=== PATIENT | male | born 1980 ===

== ENCOUNTER 2016-10-17 23:07 | Emergency (ER) | payer MEDICAID ==
[~2016-10-17] VITALS: Ht 170.2 cm; Wt 97.0 kg
[2016-10-17 23:18] VITALS: BP 122/90; PULSE 64; RESP 14; O2SAT 96
--- NOTE | 2016-10-18 00:27 | ED.REPORT ---
HPI-Neck Pain Free Text HPI Notes October 18, 2016 ED Provider: Dr. Barrett Marques D.O. A healthy 36 year old male presents to the ED reporting right-sided neck pain onset today, while loading a canoe into a trailer. He heard a "pop" at onset and his pain has progressively worsened since. It is now painful to swallow. The patient denies fever, cough, or other symptoms. Nursing Notes Stated Complaint: NECK/THROAT PAIN Chief Complaint: General Complaint Nursing Notes Reviewed: Yes Allergies: Uncoded Allergies: PENNICILLAN (Allergy, Intermediate, hive, 10/17/16) General Time Seen by Provider: 00:27 Chief Complaint Neck pain (Right-sided) Hx Obtained From: Patient Arrived By: Walk-in Sudden in Onset?: Yes Onset Occurred: 9 - 12 hours ago Symptom Duration: Since onset Progression Since Onset: Gradually worsening Location: : Lateral neck right Quality: Painful Severity: Current: Moderate Severity: Maximum: Moderate Pertinent Negative: Relieved by nothing Immunizations: Unknown Recent Healthcare: No recent doctor visit Past Medical History Past Medical History None reported Past Surgical History Multiple surgeries right shoulder Smoking History Unknown if Ever Smoker Social History Other Social History: Good social support Ambulatory Status Independent Review of Systems Review of Systems Note: + Painful swallowing Constitutional: Denies: Fever Respiratory: Denies: Non-productive cough, Shortness of breath GI: Denies: Diarrhea, Vomiting Musculoskeletal: Reports: Neck pain (Right-sided) Complete sys rev & neg: except as marked. Physical Exam Initial Vital Signs Vital Signs (First) Date Time Temp Pulse Resp B/P Pulse Ox O2 Delivery O2 Flow Rate FiO2 10/17/16 23:18 36.4 64 14 122/90 96 10/18/16 03:56 Room Air Initial VS: Reviewed Head / Eyes: Atraumatic, Normocephalic Respiratory: No respiratory distress Skin: Warm, Dry, No cyanosis Psychiatric: Mood/affect normal, Behavior normal, Normal thought content General/Constitutional: Awake, Alert, No acute distress Neck: Supple, Full range of motion Tender anterior neck Neurologic: Oriented X3, Speech NL, No motor deficits, No sensory deficits ENT: Airway patent, Mucous membranes moist, Pharynx NL Interpretation & Diagnostics CT NECK: CONCLUSION: Collapsed vocal cords, probably due to breath-holding. Possibly slight fluid or debris in the right aryepiglottic fold. No obvious acute abnormality. Report transmitted to ED by radiologist Leann Khalil M.D. at 10/18/2016 - 2:46: 13 AM PDT Lab Results Interpretation Result Diagram: 10/18/16 0108 10/18/16 0108 Test 10/18/16 01:08 White Blood Count 9.2th/mm3 (3.8-10.1) Red Blood Count 6.06mil/mm3 (4.40-5.80) Hemoglobin 16.8g/dL (13.8-17.2) Hematocrit 48.0% (41.0-50.0) Mean Corpuscular Volume 79.2fL (81-100) Mean Corpuscular Hemoglobin 27.7pg (27.0-35.0) Mean Corpuscular Hemoglobin Concent 35.0% (32.0-37.0) Red Cell Distribution Width 13.9% (12.3-15.4) Platelet Count 248bil/L (150-400) Neutrophils (%) (Auto) 63.0% (40-74) Lymphocytes (%) (Auto) 25.2% (14-46) Monocytes (%) (Auto) 7.4% (4-12) Eosinophils (%) (Auto) 3.7% (0-5) Basophils (%) (Auto) 0.5% (0-3) Sodium Level 140mEq/L (134-144) Potassium Level 4.1mEq/L (3.5-5.2) Chloride Level 99mEq/L (97-108) Carbon Dioxide Level 26mmol/L (18-29) Blood Urea Nitrogen 11mg/dL (6-20) Creatinine 0.91mg/dL (0.76-1.27) Estimat Glomerular Filtration Rate 99mL/min (>59) Glucose Level 101mg/dL (60-99) Calcium Level 10.3mg/dL (8.5-10.1) Total Bilirubin 0.7mg/dL (0.0-1.2) Aspartate Amino Transf (AST/SGOT) 26U/L (0-50) Alanine Aminotransferase (ALT/SGPT) 27U/L (0-44) Alkaline Phosphatase 65U/L (25-150) Total Protein 8.0g/dL (6.4-8.4) Albumin 5.0g/dL (3.4-5.0) Re-Eval/Medical Decision Med Decision/Clinical Course The [facility] read of the CT was reassuring. Moses was placed on pain medication and I followed up within the next day. He is feeling much better. Our radiologist do recommend that ENT get involved because before meals some swelling in the throat that is asymmetric. I called Moses at home today. He is feeling much better. I gave him Dr. Lj Hu's office number for referral. He is going to call tomorrow to set up a follow-up area and I did tell him that the radiologist think there is some fluid or soft tissue swelling needs to be looked at directly. Moses going to call tomorrow. Re-Evaluation/Progress : Time of Eval: 03:17 Patient Status: Condition improved Re-Evaluation/Progress Note: Discussed with patient lab and CT results, diagnosis, and plan for discharge. Follow-up and return to the ER instructions given. Patient agrees with plan for care and all questions were addressed. Severity: Non life-threatening Counseled Regarding: Diagnosis, Lab results, Need for follow-up, When/why to return to ED Discharge & Departure Primary Impression: Throat pain Additional Impression: Neck pain Disposition: Home Discharge Condition All VS Reviewed: Yes Condition: Improved Patient Instructions: Neck Pain (ED) Additional Instructions: Thank you for entrusting us with your care. Your CT was reassuring today. The cause of your symptoms is uncertain and needs close follow-up. 1 Vicodin every six hours as needed for pain. Do not drink alcohol, drive, or consume acetaminophen while taking Vicodin. Call your primary care provider tomorrow for a follow-up appointment. Return to the ER with any new or worsening symptoms. Dr. Lj Hu was given referral for follow-up. Referrals: Carli Rosa MD (PCP) Lj Hu MD ED Scribe Statement Portions of this note were transcribed by Shannon Stone. I, Dr. Marques, personally performed the history, physical exam, and medical decision-making; I reviewed and confirmed the accuracy of the information in the transcribed note. Signed by: Chandler Corona, 10/18/2016, 03:40 copies to: Carli Rosa MD; Lj Hu MD, Todd P DO October 18, 2016 00:27 SHANNON STONE October 18, 2016 03:20
[2016-10-18] MEDS ORDERED: Dexamethasone Inj 20 MG in 0.9% Sodium Chloride-Pha MIX 50 ML IV ONE (00:45)
[2016-10-18 01:25] LABS: BASOPHILS % (AUTO) 0.5 % (0-3); EOSINOPHILS % (AUTO) 3.7 % (0-5); MONOCYTES % (AUTO) 7.4 % (4-12); Mean Corpuscular Hemoglobin 27.7 pg (27.0-35.0); Mean Corpuscular Volume 79.2 fL (81-100); Platelet Count 248 bil/L (150-400)
[2016-10-18] MEDS ORDERED: _HYDROcodone/APAP 5-325 mg Tablet PO PRN (03:15)
[2016-10-18 03:56] VITALS: BP 113/67; PULSE 69; RESP 14; O2SAT 97
--- NOTE | 2016-10-18 11:05 | DRSVH ---
PROCEDURE: CT NECK SOFT TISSUES WITH CONTRAST ([id number]) INDICATIONS: Right anterior neck injury, difficulty swallowing, bonnie TECHNIQUE: After the administration of intravenous contrast, 3.0 mm axial sections acquired from the sella to th e aortic arch. Additional oblique axial 3.0 mm sections acquired through the pharynx. 3 mm thick co kristy reformats were generated. For radiation dose reduction, the following was used: automated exp osure control. COMPARISON: None. FINDINGS: Image quality: Excellent. Lymph nodes: No enlarged lymph nodes seen throughout the neck. Vessels: Visualized vasculature appears patent. Neck spaces: There is asymmetry in vallecula with soft tissue or fluid on the right side anterior to the epiglottis. No Mass in epiglottis. The oropharynx, nasopharynx, and pharynx demonstrate no muco saul lesions. The vocal cords, false vocal cords, pyriform sinuses, and tongue base all appear normal . Extramucosal spaces appear unremarkable. Glands: The parotid and submandibular glands appear normal. Thyroid gland is normal. Miscellaneous: Visualized brain and orbits appear normal. Lung apices appear clear. Superficial so ft tissues appear normal. Bones: No suspicious bony lesions. Visualized sinuses and mastoids appear unremarkable. IMPRESSION: Soft tissue asymmetry with soft tissue or fluid in the right side of vallecula. Recommend ENT consultation and correlation with findings on direct visualization. Dictated by: Zina Painting M.D. on 10/18/2016 at 10:56 Transcribed by: MAX on 10/18/2016 at 11:05 Approved by: Zina Painting M.D. on 10/19/2016 at 7:38
== END 2016-10-18 03:55 | disposition home or self-care (01) ==
LOC: SED 23:07
DX: M54.2 Cervicalgia (principal); X50.0XXA Overexertion from strenuous movement or load, initial encounter; Y93.89 Activity, other specified; Y92.89 Other specified places as the place of occurrence of the external cause; Y99.8 Other external cause status; R07.0 Pain in throat; Z98.890 Other specified postprocedural states
CPT/HCPCS: 36415; 70491; 80053; 85025; 87880; 96374; 99285; J1100; Q9967

== ENCOUNTER 2016-12-15 15:26 | Emergency (ER) | payer MEDICAID, OTHER ==
[~2016-12-15] VITALS: Ht 170.2 cm; Wt 88.6 kg
[2016-12-15 15:30] VITALS: BP 126/74; PULSE 81; RESP 12; O2SAT 97
--- NOTE | 2016-12-15 16:08 | DRSVH ---
PROCEDURE: X-RAY LEFT ANKLE, MINIMUM THREE VIEWS ([id number]) INDICATIONS: trauma TECHNIQUE: 3 views of the ankle were acquired. COMPARISON: None. FINDINGS: Bones: No fractures or dislocations. Ankle mortise is normally aligned. No suspicious bony lesions . Soft tissues: No tibiotalar joint effusion. Achilles tendon appears normal. Lateral soft tissue swe lling is noted and ligamentous injury cannot be excluded. IMPRESSION: No fracture. No osseous lesion. If symptoms and/or clinical suspicion for pathology pers ists, further assessment with repeat radiographs or advanced imaging (e.g. CT, MRI or bone scan) may be helpful. Dictated by: Marcella Harper MD, PhD on 12/15/2016 at 16:04 Approved by: Marcella Harper MD, PhD on 12/15/2016 at 16:06
--- NOTE | 2016-12-15 16:22 | ED.REPORT ---
HPI-General Illness Date of Service Dec 15, 2016 ED Provider: Dr. Myke Jacobson The patient is a 36 year old male who presents to the ED c/o of sharp, non- radiating, left ankle pain onset 4 hrs ago. Pt was running on a trail and rolled his ankle. He rates his pain at 8/10. The ankle is painful to movement. He denies headache, neck pain, back pain, or any other injury or symptoms. Nursing Notes Stated Complaint: LEFT ANKLE INJURY Chief Complaint: Extremity Trauma Nursing Notes Reviewed: Yes Allergies: Coded Allergies: Penicillins (Verified Allergy, Severe, hives, 12/15/16) General Time Seen by MD: 16:21 Chief Complaint Other (left ankle pain) Hx Obtained From: Patient Arrived By: Walk-in Sudden in Onset?: Yes Onset Occurred: Just prior to arrival Symptom Duration: Since onset Caused by: Accidental Location: : Ankle left Quality: Painful Radiation: : Does not radiate Severity: Current: Pain level 8 out of 10 Recent Healthcare: No recent doctor visit, No recent hospitalization Similar Sx Previous: No Past Medical History Past Medical History None reported Past Surgical History Multiple surgeries right shoulder Smoking History Current Every Day Smoker Social History Other Social History: Good social support, Local resident Ambulatory Status Independent Review of Systems Full Review of Systems Musculoskeletal: Reports: Joint pain, Joint swelling, Denies: Back pain, Neck pain Skin: Reports Bruising Neurologic: Denies: Headache Complete sys rev & neg: except as marked. Physical Exam Nursing note and vitals reviewed. Constitutional: Well-developed, well-nourished. Not diaphoretic. Head: Normocephalic and atraumatic. Mouth/Throat: Oropharynx is clear and moist. No oropharyngeal exudate. Eyes: EOM are normal. Pupils are equal, round, and reactive to light. Neck: Supple, no tracheal deviation. Cardiovascular: Normal rate, regular rhythm. Equal and intact distal pulses throughout. Pulmonary/Chest: Effort normal and breath sounds normal. No respiratory distress. Abdominal: Soft. No distension. There is no tenderness, rebound, or guarding. Bowel sounds present. Musculoskeletal: No knee pain or tenderness, no proximal fibula tenderness, diffuse soft tissue tenderness to left lateral malleolus, no proximal 1st or 2nd metatarsal tenderness , no significant lateral fifth metatarsal tenderness, no c-spine tenderness, good pulses Neurological: AOx3. Grossly nonfocal exam. Strength and sensation intact and equal to bilateral upper and lower extremities. Skin: Warm and dry, no rashes or pallor appreciated. Psychiatric: Appropriate mood and affect. Behavior appears normal. Vital Signs Vital Signs Date Time Temp Pulse Resp B/P Pulse Ox O2 Delivery O2 Flow Rate FiO2 12/15/16 15:30 36.4 81 12 126/74 97 Room Air Initial VS: Reviewed Interpretation & Diagnostics X-Ray Interpretation Xray Interpretation: IMPRESSION: No fracture. No osseous lesion. If symptoms and/or clinical suspicion for pathology persists, further assessment with repeat radiographs or advanced imaging (e.g. CT, MRI or bone scan) may be helpful. Dictated by: Marcella Harper MD, PhD on 12/15/2016 at 16:04 Approved by: Marcella Harper MD, PhD on 12/15/2016 at 16:06 X-Ray Ordered: Ankle left Interpretation / Wet Read by: Interpret - Radiologist Re-Eval/Medical Decision Med Decision/Clinical Course 36-year-old male presenting to the ED for evaluation of a left ankle injury sustained earlier this afternoon while running on a trail. No other injuries. Neurovascularly intact. No first or second proximal metatarsal tenderness to suggest Lisfranc injury. No lateral fifth metatarsal tenderness. Plan discharge home with careful return precautions, air splint for comfort, RICE therapy, and PCP follow-up. Patient agreeable to the plan as stated, no further questions. Counseled Regarding: Diagnosis, Lab results, Need for follow-up, When/why to return to ED Discharge & Departure Primary Impression: Ankle sprain Encounter type: initial encounter Involved ligament of ankle: unspecified ligament Laterality: left Qualified Code: S93.402A - Sprain of unspecified ligament of left ankle, initial encounter Disposition: Home Discharge Condition All VS Reviewed: Yes Condition: Stable Patient Instructions: Ankle Sprain (GEN) Additional Instructions: Thank you for entrusting us with your care today. The x-ray did not show any fracture. Rest your ankle for a few days. I am sending you home with an air splint for stability. Take Tylenol and Ibuprofen as needed for pain. Follow up with your primary care physician in the next few days for further care. Return to the Emergency Department if you experience any new or worsening symptoms. I hope you feel better soon! Referrals: Carli Rosa MD (PCP) [facility] Scribe Attestation Portion of this note were transcribed by Dolly Abrams. I, Dr. Jacobson, personally performed the history, physical exam, and medical decision-making: I reviewed and confirmed the accuracy for the information in the transcribed note. Signed by: tammie Horowitz, 12/15/16 2100 copies to: [facility] Myke Jacobson MD Dec 15, 2016 16:22 Dolly Abrams Dec 15, 2016 16:53
== END 2016-12-15 17:21 | disposition home or self-care (01) ==
LOC: SED 15:26
DX: S93.492A Sprain of other ligament of left ankle, initial encounter (principal); X50.9XXA Other and unspecified overexertion or strenuous movements or postures, initial encounter; Y93.02 Activity, running; Y92.69 Other specified industrial and construction area as the place of occurrence of the external cause; Y99.0 Civilian activity done for income or pay; F17.200 Nicotine dependence, unspecified, uncomplicated; Z88.0 Allergy status to penicillin